=== PATIENT | female | born 1980 | race American Indian/Alaskan Native ===

== ENCOUNTER 2017-09-03 14:08 | Emergency (ER) | payer MEDICARE ==
[2017-09-03 15:25] LABS: Urine Drugs of Abuse Note Disclamer
[2017-09-03 15:34] LABS: Basophils % (Auto) 0.2 % (0.0-1.8); Hematocrit 36.2 % (30.3-42.9); Hemoglobin 11.8 gm/dl (10.1-14.3); Mean Corpuscular HGB Conc 32 % (30-34); Mean Corpuscular Volume 79 fl (79-97); Platelet Count 303 K/mm3 (140-440); Red Blood Count 4.62 M/mm3 (3.65-5.03); White Blood Count 4.8 K/mm3 (4.5-11.0)
[2017-09-03 15:35] LABS: Mean Corpuscular Hemoglobin 26 pg (28-32)
[2017-09-03 15:46] LABS: Anion Gap 18 mmol/L; BUN/Creatinine Ratio 30; Blood Urea Nitrogen 12 mg/dL (7-17); Calcium 8.8 mg/dL (8.4-10.2); Carbon Dioxide 26 mmol/L (22-30); Chloride 100.8 mmol/L (98-107); Glucose 281 mg/dL (65-100); Potassium 4.3 mmol/L (3.6-5.0); Sodium 140 mmol/L (137-145)
[2017-09-03 15:47] LABS: Bilirubin,Urine NEG (Negative); Blood,Urine NEG (Negative); Ketones,Urine NEG (Negative); Leukocyte Esterase,Urine NEG (Negative); Mucus,Urine 1+ /HPF; Nitrite,Urine NEG (Negative)
--- NOTE | 2017-09-03 22:40 | Emergency Department Report ---
ED General Adult HPI - General Chief complaint: Psych Stated complaint: 1013 Time Seen by Provider: 09/03/17 20:58 Source: patient, police Mode of arrival: Ambulatory Limitations: No Limitations - History of Present Illness Initial comments: Pt is a 36 yo female with a history of bipolar disorder and schizoaffective disorder here for suicidal ideation. Pt states she has a history of diabetes. Pt states she is feeling suicidal after her boyfriend got into an argument with her. Pt denied hearing voices, or any suicidal or homicidal ideation. Severity scale (0 -10): 0 - Related Data Allergies Allergy/AdvReac Type Severity Reaction Status Date / Time aspirin Allergy Unknown Verified 09/03/17 15:04 promethazine [From Phenergan] Allergy Unknown Verified 09/03/17 15:04 ED Review of Systems ROS: Stated complaint: 1013 Other details as noted in HPI Constitutional: no symptoms reported Eyes: as per HPI ENT: as per HPI Respiratory: no symptoms reported Cardiovascular: as per HPI Genitourinary: frequency ED Past Medical Hx - Social History Smoking Status: Current Every Day Smoker ED Physical Exam - General Limitations: No Limitations - Head Head exam: Present: atraumatic, normocephalic - Eye Eye exam: Present: normal appearance - ENT ENT exam: Present: mucous membranes moist - Respiratory Respiratory exam: Present: normal lung sounds bilaterally. Absent: respiratory distress - Cardiovascular Cardiovascular Exam: Present: regular rate, normal rhythm. Absent: systolic murmur, diastolic murmur, rubs, gallop - Extremities Exam Extremities exam: Present: normal inspection - Back Exam Back exam: Present: normal inspection - Skin Skin exam: Present: warm, dry, intact, normal color. Absent: rash ED Course Vital Signs 09/03/17 09/03/17 15:23 15:24 Temperature 98.2 F Pulse Rate 94 H Respiratory 16 16 Rate Blood Pressure 109/79 [Left] O2 Sat by Pulse 100 100 Oximetry - Consultations Consultation #1: 09/03/17 22:50 awaiting psych assessment; pt is also being treated for hyperglycemia ED Medical Decision Making - Lab Data Result diagrams: 09/03/17 15:15 09/03/17 15:15 Critical care attestation.: If time is entered above; I have spent that time in minutes in the direct care of this critically ill patient, excluding procedure time. ED Disposition Clinical Impression: Medical clearance for psychiatric admission Is pt being admited?: No Does the pt Need Aspirin: No Condition: Stable Referrals: PRIMARY CARE, [Primary Care Provider] - 3-5 Days
[2017-09-04 14:41] VITALS: BP 116/54
--- NOTE | 2017-09-04 15:12 | Consultation ---
History of Present Illness - Reason for Consult Consult date: 09/04/17 Reason for consult: Mental Health Evaluation Requesting physician: RADHA SARKAR - Chief Complaint Chief complaint: "I hate feeling this way" - History of Present Psychiatric Illness 36 y.o. AA female presenting to [facility] for SI's. Today patient is calm and cooperative during the assessment. She stated that she go into an argument with her boyfriend and starting hearing voices telling her she isn't a nice person. She stated that the voices became overwhelming, so she want to "." She stated that she was discharged from [facility] a week ago and had not taken her medications. She could not elaborate more about the argument she had with her boyfriend. She stated struggling with depression and hearing voices for several years. She stated that she has attempted suicide in the past by overdosing on pills. She endorse SI's without a plan. She denies HI's and VH's. She denies recreational drug use and alcohol consumption (etoh). Medications and Allergies Allergies Allergy/AdvReac Type Severity Reaction Status Date / Time aspirin Allergy Unknown Verified 09/03/17 15:04 promethazine [From Phenergan] Allergy Unknown Verified 09/03/17 15:04 Past psychiatric history - Past Medical History Past Medical History: diabetes Past Surgical History: No surgical history - past Psychiatric treatment and history Psych: Bipolar, Depression, Schizophrenia psychiatric treatment history: Multiple inpatient psy settings. Denies a fam psy hx. - Social History Social history: other (homeless) Mental Status Exam - Vital signs Last Vital Signs Temp 98.4 F 09/04/17 13:00 Pulse 84 09/04/17 13:00 Resp 18 09/04/17 13:00 BP 116/54 09/04/17 13:00 Pulse Ox 99 09/04/17 13:00 - Exam Narrative exam: MSE: Appearance: calm, cooperative Behavior: regular eye contact Speech: regular rate and tone Mood: "not well" withdrawn Affect: congruent to mood Thought Process: circumstantial Thought Content: denies HI's and VH's Motor Activity: ambulatory Cognition: A/O x3 Insight: variable Judgment: variable Results Result Diagrams: 09/03/17 15:15 09/03/17 15:15 Abnormal lab results 11/09/03/17 09/03/17 Range/Units 15:15 15:15 15:24 MCH 26 L (28-32) pg RDW 19.0 H (13.2-15.2) % Lymph # 1.1 L (1.2-5.4) K/mm3 Seg Neutrophils % 71.1 H (40.0-70.0) % Creatinine 0.4 L (0.7-1.2) mg/dL Glucose 281 H (65-100) mg/dL POC Glucose (70-105) U Epithel Cells (Auto) 54.0 H (0-13.0) /HPF 09/04/17 09/04/17 Range/Units 00:18 00:58 MCH (28-32) pg RDW (13.2-15.2) % Lymph # (1.2-5.4) K/mm3 Seg Neutrophils % (40.0-70.0) % Creatinine (0.7-1.2) mg/dL Glucose (65-100) mg/dL POC Glucose 230 H 223 H (70-105) U Epithel Cells (Auto) (0-13.0) /HPF All other labs normal. Assessment and Plan Assessment and plan: Impression: Schizoaffective DO. Today patient is calm and cooperative during the assessment. Patient endorses SI's without a plan. DDx: R/O Bipolar DO, R/O MDD, R/O Schizophrenia Recommendation/Plan: Continue 1013 with placement to [facility] today.
== END 2017-09-04 14:58 ==
LOC: ED 14:08 → EEVIPCON 14:08 → ED 09-04 14:58
DX: Z00.8 Encounter for other general examination (principal); F17.200 Nicotine dependence, unspecified, uncomplicated; Z88.8 Allergy status to other drugs, medicaments and biological substances
CPT/HCPCS: 36415; 80048; 80307; 81001; 81025; 82962; 85025; 96372; 99285; G0480; 80320; J1815

== ENCOUNTER 2017-12-30 01:31 | Emergency (ER) | payer MEDICARE ==
[2017-12-30 02:31] LABS: Basophils % (Auto) 0.3 % (0.0-1.8); Hematocrit 34.9 % (30.3-42.9); Hemoglobin 11.2 gm/dl (10.1-14.3); Lymphocytes # (Auto) 1.4 K/mm3 (1.2-5.4); Lymphocytes % (Auto) 28.6 % (13.4-35.0); Mean Corpuscular HGB Conc 32 % (30-34); Mean Corpuscular Volume 80 fl (79-97); Monocytes # (Auto) 0.3 K/mm3 (0.0-0.8); Monocytes % (Auto) 6.8 % (0.0-7.3); Platelet Count 303 K/mm3 (140-440); Red Blood Count 4.39 M/mm3 (3.65-5.03)
[2017-12-30 02:36] LABS: BUN/Creatinine Ratio 19; Blood Urea Nitrogen 13 mg/dL (7-17); Calcium 8.5 mg/dL (8.4-10.2); Hemolysis Index 18
--- NOTE | 2017-12-30 02:36 | XRay Report ---
FINAL REPORT PROCEDURE: XR CHEST ROUTINE 2V TECHNIQUE: PA and lateral chest radiographs were obtained. CPT 20633 HISTORY: shortness of breath COMPARISON: No prior studies are available for comparison. FINDINGS: Heart: Normal. Mediastinum/Vessels: Normal. Lungs/Pleural space: Normal. Bony thorax: No acute osseous abnormality. Other: IMPRESSION: Normal examination.
[2017-12-30 02:41] LABS: Mean Corpuscular Hemoglobin 25 pg (28-32)
[2017-12-30] MEDS ORDERED: NACL 0.9% 1000 ML 1,000 ML IV ONE ×2 (03:57→06:16)
[2017-12-30] MEDS ORDERED: HumuLIN R IV ONE (06:16)
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
[2017-12-30 06:17] LABS: Bacteria,Urine 2+ /HPF (Negative); Bilirubin,Urine NEG (Negative); Blood,Urine SM (Negative); Color,Urine Yellow (Yellow); Mucus,Urine FEW /HPF; Protein,Urine <15 mg/dL mg/dL (Negative)
[2017-12-30] MEDS ORDERED: HumuLIN R ONE (06:17)
[2017-12-30 10:36] VITALS: BP 123/81
== END 2017-12-30 10:36 | disposition home or self-care (01) ==
LOC: ED 01:31
DX: E11.65 Type 2 diabetes mellitus with hyperglycemia (principal); N39.0 Urinary tract infection, site not specified; F17.200 Nicotine dependence, unspecified, uncomplicated; Z88.6 Allergy status to analgesic agent; Z88.8 Allergy status to other drugs, medicaments and biological substances
CPT/HCPCS: 36415; 71046; 80048; 81001; 82805; 82962; 85025; 93005; 93010; 96361; 96374; 99285; J7030; J1815

== ENCOUNTER 2018-01-05 17:47 | Emergency (ER) | payer MEDICARE ==
[2018-01-05 21:44] LABS: Basophils % (Auto) 0.3 % (0.0-1.8); Hematocrit 35.4 % (30.3-42.9); Lymphocytes # (Auto) 1.5 K/mm3 (1.2-5.4); Lymphocytes % (Auto) 26.7 % (13.4-35.0); Mean Corpuscular HGB Conc 31 % (30-34); Mean Corpuscular Volume 79 fl (79-97); Monocytes # (Auto) 0.4 K/mm3 (0.0-0.8); Monocytes % (Auto) 6.3 % (0.0-7.3); Platelet Count 342 K/mm3 (140-440); Red Blood Count 4.47 M/mm3 (3.65-5.03); Red Cell Distribution Width 17.3 % (13.2-15.2)
[2018-01-05 21:48] LABS: Mean Corpuscular Hemoglobin 25 pg (28-32)
[2018-01-05 21:56] LABS: BUN/Creatinine Ratio 23; Blood Urea Nitrogen 9 mg/dL (7-17); Calcium 8.9 mg/dL (8.4-10.2); Hemolysis Index 0
[2018-01-05 23:09] LABS: Bacteria,Urine 4+ /HPF (Negative); Bilirubin,Urine NEG (Negative); Blood,Urine LG (Negative); Color,Urine Red (Yellow); Mucus,Urine 1+ /HPF
[2018-01-06] MEDS ORDERED: HumuLIN R IV ONE (10:42)
[2018-01-06] MEDS ORDERED: NACL 0.9% 1000 ML 1,000 ML IV ONE (10:42)
--- NOTE | 2018-01-06 11:35 | Emergency Department Report ---
ED General Adult HPI - General Chief complaint: Hyperglycemia Stated complaint: HIGH BLOOD SUGAR/YEAST INFECTION Time Seen by Provider: 01/06/18 10:40 Source: patient Mode of arrival: Ambulatory Limitations: No Limitations - History of Present Illness Initial comments: 37-year-old female past medical history diabetes (takes insulin and metformin), schizophrenia, bipolar disorder, and Marfan syndrome presents to Hospital complaining of bad groin related yeast infection. She has been noncompliant with insulin is running 400-500's at home. She was here last week for the same thing. Patient just got her insulin filled yesterday and has not yet started taking her medication because she needs a prescription for syringes, needles, and a testing machine. Patient complains of continued rash to groin and vaginal area which she thinks is yeast. This rash was also present on her previous visits and has worsened. Patient states she has been using diaper rash cream and Vaseline without improvement. No complaints of fever. Pain to vaginal/inguinal area rated as moderate, constant, worse or palpation. Patient was placed on antibiotics last week for diagnosis of UTI Severity scale (0 -10): 10 - Related Data Previous Rx's Medication Instructions Recorded Last Taken Type Insulin Glargine,Hum.rec.anlog 30 units SQ QHS #5 vial 12/30/17 Unknown Rx [Lantus] Insulin Glargine,Hum.rec.anlog 30 units SQ QHS #5 vial 12/30/17 Unknown Rx [Lantus] Insulin Regular, Human Inj 10 unit SQ AC #3 12/30/17 Unknown Rx [Novolin R Inj] Levofloxacin [Levaquin TAB] 500 mg PO QDAY #7 tablet 12/30/17 Unknown Rx metFORMIN [Glucophage] 500 mg PO BID #60 tablet 12/30/17 Unknown Rx Blood Sugar Diagnostic, Drum 1 each MC TID 30 Days strip 01/06/18 Unknown Rx [Accu-Chek Compact] Syringe and Needle,Insulin,1Ml 1 each MC TID 30 Days disp.syrin 01/06/18 Unknown Rx [Insulin Syringe/Needle 1 ML] Terbinafine HCl [Lamisil At] 1 applicatio TP QDAY 7 Days 01/06/18 Unknown Rx cream..g. Allergies Allergy/AdvReac Type Severity Reaction Status Date / Time aspirin Allergy Unknown Verified 11/15/17 15:04 promethazine [From Phenergan] Allergy Unknown Verified 09/03/17 15:04 ED Review of Systems ROS: Stated complaint: HIGH BLOOD SUGAR/YEAST INFECTION Other details as noted in HPI Comment: All other systems reviewed and negative Other: Constitutional: No fevers chills or weight loss Eyes: No eye pain visual changes ENT: No ear pain or throat pain Neck: Denies pain Respiratory: Denies cough wheezing shortness of breath Cardiovascular: Denies chest pain, palpitations, syncope GI: Denies abdominal pain, nausea, vomiting, diarrhea : Denies dysuria Musculoskeletal: Denies back pain Skin: As per HPI Neurologic: Denies headache, numbness, weakness Psychiatric: Denies suicidal ideation, hallucinations y ED Past Medical Hx - Past Medical History Previous Medical History?: Yes Hx Diabetes: Yes Hx Psychiatric Treatment: Yes (Schizophrenia, Bipolar) Additional medical history: Marfan syndrome - Social History Smoking Status: Current Every Day Smoker - Medications Home Medications: Home Medications Medication Instructions Recorded Confirmed Last Taken Type Insulin Glargine,Hum.rec.anlog 30 units SQ QHS #5 vial 12/30/17 Unknown Rx [Lantus] Insulin Glargine,Hum.rec.anlog 30 units SQ QHS #5 vial 12/30/17 Unknown Rx [Lantus] Insulin Regular, Human Inj 10 unit SQ AC #3 12/30/17 Unknown Rx [Novolin R Inj] Levofloxacin [Levaquin TAB] 500 mg PO QDAY #7 tablet 12/30/17 Unknown Rx metFORMIN [Glucophage] 500 mg PO BID #60 tablet 12/30/17 Unknown Rx Blood Sugar Diagnostic, Drum 1 each MC TID 30 Days strip 01/06/18 Unknown Rx [Accu-Chek Compact] Syringe and Needle,Insulin,1Ml 1 each MC TID 30 Days disp.syrin 01/06/18 Unknown Rx [Insulin Syringe/Needle 1 ML] Terbinafine HCl [Lamisil At] 1 applicatio TP QDAY 7 Days 01/06/18 Unknown Rx cream..g. ED Physical Exam - General Limitations: No Limitations - Other Other exam information: General: No limitations, patient is alert in no acute distress Head exam: Atraumatic, normocephalic Eyes exam: Normal appearance ENT: Moist mucous membrane, normal oropharynx Neck exam: Normal inspection, full range of motion Respiratory exam: Clear to auscultation bilateral, no wheezes, rales, crackles Cardiovascular: Normal rate and rhythm, normal heart sounds Abdomen: Soft, nondistended, and nontender, with normal bowel sounds, no rebound, or guarding Extremity: Full range of motion normal inspection no deformity Back: Normal Inspection, full range of motion, no tenderness Neurologic: Alert, oriented x3, cranial nerves intact, no motor or sensory deficit Psychiatric: normal affect, normal mood Skin: Significant tinea cruris infection with malodorous, moist, erythematous rash with white plaques infection involves the vulva and intertriginous areas ED Course Vital Signs 01/05/18 01/06/18 01/06/18 21:15 03:19 05:48 Temperature 98.2 F 98.2 F Pulse Rate 83 76 77 Respiratory 20 18 18 Rate Blood Pressure 125/77 135/84 146/86 Blood Pressure [Right] O2 Sat by Pulse 100 100 100 Oximetry 01/06/18 01/06/18 08:13 13:34 Temperature 98.7 F 98.0 F Pulse Rate 77 82 Respiratory 20 18 Rate Blood Pressure 137/91 Blood Pressure 132/82 [Right] O2 Sat by Pulse 99 98 Oximetry ED Medical Decision Making - Lab Data Result diagrams: 01/05/18 21:34 01/05/18 21:34 Lab Results 01/05/18 01/05/18 01/05/18 Range/Units 21:29 21:34 21:34 WBC 5.5 (4.5-11.0) K/mm3 RBC 4.47 (3.65-5.03) M/mm3 Hgb 11.0 (10.1-14.3) gm/dl Hct 35.4 (30.3-42.9) % MCV 79 (79-97) fl MCH 25 L (28-32) pg MCHC 31 (30-34) % RDW 17.3 H (13.2-15.2) % Plt Count 342 (140-440) K/mm3 Lymph % (Auto) 26.7 (13.4-35.0) % [place] % (Auto) 6.3 (0.0-7.3) % Eos % (Auto) 0.0 (0.0-4.3) % Baso % (Auto) 0.3 (0.0-1.8) % Lymph # 1.5 (1.2-5.4) K/mm3 [place] # 0.4 (0.0-0.8) K/mm3 Eos # 0.0 (0.0-0.4) K/mm3 Baso # 0.0 (0.0-0.1) K/mm3 Seg Neutrophils % 66.7 (40.0-70.0) % Seg Neutrophils # 3.7 (1.8-7.7) K/mm3 VBG pH (7.320-7.420) Sodium 137 (137-145) mmol/L Potassium 4.2 (3.6-5.0) mmol/L Chloride 100.7 (98-107) mmol/L Carbon Dioxide 22 (22-30) mmol/L Anion Gap 19 mmol/L BUN 9 (7-17) mg/dL Creatinine 0.4 L (0.7-1.2) mg/dL Estimated GFR > 60 ml/min BUN/Creatinine Ratio 23 % Glucose 266 H (65-100) mg/dL POC Glucose 190 H (70-105) Calcium 8.9 (8.4-10.2) mg/dL Total Bilirubin (0.1-1.2) mg/dL Direct Bilirubin (0-0.2) mg/dL Indirect Bilirubin mg/dL AST (5-40) units/L ALT (7-56) units/L Alkaline Phosphatase (35-129) units/L Total Protein (6.3-8.2) g/dL Albumin (3.9-5) g/dL Albumin/Globulin Ratio % HCG, Qual (Negative) Urine Color (Yellow) Urine Turbidity (Clear) Urine pH (5.0-7.0) Ur Specific [place] (1.003-1.030) Urine Protein (Negative) mg/dL Urine Glucose (UA) (Negative) mg/dL Urine Ketones (Negative) mg/dL Urine Blood (Negative) Urine Nitrite (Negative) Urine Bilirubin (Negative) Urine Urobilinogen (<2.0) mg/dL Ur Leukocyte Esterase (Negative) Urine WBC (Auto) (0.0-6.0) /HPF Urine RBC (Auto) (0.0-6.0) /HPF U Epithel Cells (Auto) (0-13.0) /HPF Urine Bacteria (Auto) (Negative) /HPF Urine Mucus /HPF 01/05/18 01/05/18 01/05/18 Range/Units 21:34 21:34 Unknown WBC (4.5-11.0) K/mm3 RBC (3.65-5.03) M/mm3 Hgb (10.1-14.3) gm/dl Hct (30.3-42.9) % MCV (79-97) fl MCH (28-32) pg MCHC (30-34) % RDW (13.2-15.2) % Plt Count (140-440) K/mm3 Lymph % (Auto) (13.4-35.0) % [place] % (Auto) (0.0-7.3) % Eos % (Auto) (0.0-4.3) % Baso % (Auto) (0.0-1.8) % Lymph # (1.2-5.4) K/mm3 [place] # (0.0-0.8) K/mm3 Eos # (0.0-0.4) K/mm3 Baso # (0.0-0.1) K/mm3 Seg Neutrophils % (40.0-70.0) % Seg Neutrophils # (1.8-7.7) K/mm3 VBG pH 7.393 (7.320-7.420) Sodium (137-145) mmol/L Potassium (3.6-5.0) mmol/L Chloride (98-107) mmol/L Carbon Dioxide (22-30) mmol/L Anion Gap mmol/L BUN (7-17) mg/dL Creatinine (0.7-1.2) mg/dL Estimated GFR ml/min BUN/Creatinine Ratio % Glucose (65-100) mg/dL POC Glucose (70-105) Calcium (8.4-10.2) mg/dL Total Bilirubin (0.1-1.2) mg/dL Direct Bilirubin (0-0.2) mg/dL Indirect Bilirubin mg/dL AST (5-40) units/L ALT (7-56) units/L Alkaline Phosphatase (35-129) units/L Total Protein (6.3-8.2) g/dL Albumin (3.9-5) g/dL Albumin/Globulin Ratio % HCG, Qual Negative (Negative) Urine Color Red (Yellow) Urine Turbidity Clear (Clear) Urine pH 5.0 (5.0-7.0) Ur Specific [place] 1.025 (1.003-1.030) Urine Protein 100 mg/dl (Negative) mg/dL Urine Glucose (UA) >=500 (Negative) mg/dL Urine Ketones 80 (Negative) mg/dL Urine Blood Lg (Negative) Urine Nitrite Neg (Negative) Urine Bilirubin Neg (Negative) Urine Urobilinogen 2.0 (<2.0) mg/dL Ur Leukocyte Esterase Lg (Negative) Urine WBC (Auto) 37.0 H (0.0-6.0) /HPF Urine RBC (Auto) 42.0 (0.0-6.0) /HPF U Epithel Cells (Auto) 15.0 H (0-13.0) /HPF Urine Bacteria (Auto) 4+ (Negative) /HPF Urine Mucus 1+ /HPF 01/06/18 01/06/18 01/06/18 Range/Units 05:55 10:32 12:11 WBC (4.5-11.0) K/mm3 RBC (3.65-5.03) M/mm3 Hgb (10.1-14.3) gm/dl Hct (30.3-42.9) % MCV (79-97) fl MCH (28-32) pg MCHC (30-34) % RDW (13.2-15.2) % Plt Count (140-440) K/mm3 Lymph % (Auto) (13.4-35.0) % [place] % (Auto) (0.0-7.3) % Eos % (Auto) (0.0-4.3) % Baso % (Auto) (0.0-1.8) % Lymph # (1.2-5.4) K/mm3 [place] # (0.0-0.8) K/mm3 Eos # (0.0-0.4) K/mm3 Baso # (0.0-0.1) K/mm3 Seg Neutrophils % (40.0-70.0) % Seg Neutrophils # (1.8-7.7) K/mm3 VBG pH (7.320-7.420) Sodium (137-145) mmol/L Potassium (3.6-5.0) mmol/L Chloride (98-107) mmol/L Carbon Dioxide (22-30) mmol/L Anion Gap mmol/L BUN (7-17) mg/dL Creatinine (0.7-1.2) mg/dL Estimated GFR ml/min BUN/Creatinine Ratio % Glucose (65-100) mg/dL POC Glucose 337 H 308 H (70-105) Calcium (8.4-10.2) mg/dL Total Bilirubin 0.40 (0.1-1.2) mg/dL Direct Bilirubin < 0.2 (0-0.2) mg/dL Indirect Bilirubin 0.2 mg/dL AST 20 (5-40) units/L ALT 19 (7-56) units/L Alkaline Phosphatase 106 (35-129) units/L Total Protein 6.4 (6.3-8.2) g/dL Albumin 3.4 L (3.9-5) g/dL Albumin/Globulin Ratio 1.1 % HCG, Qual (Negative) Urine Color (Yellow) Urine Turbidity (Clear) Urine pH (5.0-7.0) Ur Specific [place] (1.003-1.030) Urine Protein (Negative) mg/dL Urine Glucose (UA) (Negative) mg/dL Urine Ketones (Negative) mg/dL Urine Blood (Negative) Urine Nitrite (Negative) Urine Bilirubin (Negative) Urine Urobilinogen (<2.0) mg/dL Ur Leukocyte Esterase (Negative) Urine WBC (Auto) (0.0-6.0) /HPF Urine RBC (Auto) (0.0-6.0) /HPF U Epithel Cells (Auto) (0-13.0) /HPF Urine Bacteria (Auto) (Negative) /HPF Urine Mucus /HPF 01/06/18 Range/Units 12:22 WBC (4.5-11.0) K/mm3 RBC (3.65-5.03) M/mm3 Hgb (10.1-14.3) gm/dl Hct (30.3-42.9) % MCV (79-97) fl MCH (28-32) pg MCHC (30-34) % RDW (13.2-15.2) % Plt Count (140-440) K/mm3 Lymph % (Auto) (13.4-35.0) % [place] % (Auto) (0.0-7.3) % Eos % (Auto) (0.0-4.3) % Baso % (Auto) (0.0-1.8) % Lymph # (1.2-5.4) K/mm3 [place] # (0.0-0.8) K/mm3 Eos # (0.0-0.4) K/mm3 Baso # (0.0-0.1) K/mm3 Seg Neutrophils % (40.0-70.0) % Seg Neutrophils # (1.8-7.7) K/mm3 VBG pH (7.320-7.420) Sodium (137-145) mmol/L Potassium (3.6-5.0) mmol/L Chloride (98-107) mmol/L Carbon Dioxide (22-30) mmol/L Anion Gap mmol/L BUN (7-17) mg/dL Creatinine (0.7-1.2) mg/dL Estimated GFR ml/min BUN/Creatinine Ratio % Glucose (65-100) mg/dL POC Glucose 250 H (70-105) Calcium (8.4-10.2) mg/dL Total Bilirubin (0.1-1.2) mg/dL Direct Bilirubin (0-0.2) mg/dL Indirect Bilirubin mg/dL AST (5-40) units/L ALT (7-56) units/L Alkaline Phosphatase (35-129) units/L Total Protein (6.3-8.2) g/dL Albumin (3.9-5) g/dL Albumin/Globulin Ratio % HCG, Qual (Negative) Urine Color (Yellow) Urine Turbidity (Clear) Urine pH (5.0-7.0) Ur Specific [place] (1.003-1.030) Urine Protein (Negative) mg/dL Urine Glucose (UA) (Negative) mg/dL Urine Ketones (Negative) mg/dL Urine Blood (Negative) Urine Nitrite (Negative) Urine Bilirubin (Negative) Urine Urobilinogen (<2.0) mg/dL Ur Leukocyte Esterase (Negative) Urine WBC (Auto) (0.0-6.0) /HPF Urine RBC (Auto) (0.0-6.0) /HPF U Epithel Cells (Auto) (0-13.0) /HPF Urine Bacteria (Auto) (Negative) /HPF Urine Mucus /HPF - Medical Decision Making No signs of DKA with normal pH and bicarbonate labs. Ketosis could be related to poor food intake. Patient has a significant tinea cruris infection likely related to hyperglycemia and medication noncompliance. Patient educated on the importance of glucose control so that infection may get better. Received one dose of Diflucan in the ED (LFTs normal) and will he continued on a topical antifungal cream. Instructed to return if symptoms don't improve and follow-up recommended. UA has white cells in high epithelials therefore likely contaminate. Patient does not have symptoms of uti - Differential Diagnosis DKA, hyperglycemia, yeast infection, bacterial infection Critical Care Time: No Critical care attestation.: If time is entered above; I have spent that time in minutes in the direct care of this critically ill patient, excluding procedure time. ED Disposition Clinical Impression: Hyperglycemia, Noncompliance with medication regimen, Tinea cruris Disposition: TO HOME OR SELFCARE Is pt being admited?: No Does the pt Need Aspirin: No Condition: Stable Instructions: Jock Itch (ED), Diabetes Mellitus Type 2 in Adults (ED) Additional Instructions: Take the medication as prescribed. Return if symptoms do not improve. Follow- up with the clinic or doctor provided. Prescriptions: Blood Sugar Diagnostic, Drum [Accu-Chek Compact] 1 each MC TID 30 Days strip Syringe and Needle,Insulin,1Ml [Insulin Syringe/Needle 1 ML] 1 each MC TID 30 Days disp.syrin Terbinafine HCl [Lamisil At] 1 applicatio TP QDAY 7 Days cream..g. Referrals: PRIMARY CAREMD [Primary Care Provider] - 3-5 Days [facility] [Provider Group] - 3-5 Days JOSE KAISER JR, MD [Staff Physician] - 3-5 Days Time of Disposition: 14:05
[2018-01-06] MEDS ORDERED: DIFLUCAN PO ONE (12:00)
[2018-01-06 13:04] LABS: Alanine Aminotransferase 19 units/L (7-56); Albumin 3.4 g/dL (3.9-5)
[2018-01-06 13:05] LABS: Bilirubin,Direct < 0.2 mg/dL (0-0.2)
[2018-01-06 13:35] VITALS: BP 132/82
== END 2018-01-06 14:34 | disposition home or self-care (01) ==
LOC: ED 17:47
DX: E11.65 Type 2 diabetes mellitus with hyperglycemia (principal); B35.6 Tinea cruris; F17.200 Nicotine dependence, unspecified, uncomplicated; Z79.4 Long term (current) use of insulin; Z88.6 Allergy status to analgesic agent; Z88.8 Allergy status to other drugs, medicaments and biological substances
CPT/HCPCS: 36415; 80048; 80074; 81001; 82805; 82962; 84703; 85025; 96361; 96374; 99284; J7030; J1815

== ENCOUNTER 2018-04-17 12:59 | Emergency (ER) | payer MEDICARE ==
--- NOTE | 2018-04-17 14:01 | Emergency Department Report ---
Blank Doc - Documentation Documentation: Patient is a 37-year-old female past medical history diabetes who is presenting with an abscess on the right lower extremity. Patient was seen in another facility was given a prescription for antibiotics however she states this was lost. Patient has subjective fevers and chills this morning. Patient denies any nausea vomiting abdominal pain at this time. Patient be sent to a treatment room for incision and drainage.
--- NOTE | 2018-04-17 14:13 | Emergency Department Report ---
Abscess Boil HPI - HPI Chief Complaint: Skin/Abscess/Foreign Body Stated Complaint: SPIDER BITE Time Seen by Provider: 04/17/18 13:56 Duration: 4 Days Location: Lower Extremity (left leg) Severity: Moderate History: Yes Fever (subjective), Yes Pain (8/10 sore), Yes Insect Bite (patient reports spider bite), No Purulent Drainage, No Numbness, No Foreign Body, No Previous History HPI: Patient is a 37-year-old female past medical history diabetes who is presenting with an abscess on the right lower extremity. Patient was seen in another facility was given a prescription for antibiotics however she states this was lost. Patient has subjective fevers and chills this morning. Patient denies any nausea vomiting abdominal pain at this time. Denies any numbness or tingling to extremities. Pain is 8/10 left leg and sore localized to the affected area. Patient says that area has gotten better and it was read now it' s dark. Worse with movement and palpation better resting. No medication taken. Immunizations up-to-date to include tetanus. She denies any respiratory symptoms such as shortness of breath, difficulty swallowing, stridor or wheezing, coughing or swelling neck or face. Home Medications: Previous Rx's Medication Instructions Recorded Last Taken Type Insulin Glargine,Hum.rec.anlog 30 units SQ QHS #5 vial 12/30/17 Unknown Rx [Lantus] Insulin Glargine,Hum.rec.anlog 30 units SQ QHS #5 vial 12/30/17 Unknown Rx [Lantus] Insulin Regular, Human Inj 10 unit SQ AC #3 12/30/17 Unknown Rx [Novolin R Inj] Levofloxacin [Levaquin TAB] 500 mg PO QDAY #7 tablet 12/30/17 Unknown Rx metFORMIN [Glucophage] 500 mg PO BID #60 tablet 12/30/17 Unknown Rx Blood Sugar Diagnostic, Drum 1 each MC TID 30 Days strip 01/06/18 Unknown Rx [Accu-Chek Compact] Blood-Glucose Meter [Accu-Chek 1 each MC DAILY #1 unit 01/06/18 Unknown Rx Guide Monitor System] Syringe and Needle,Insulin,1Ml 1 each MC TID 30 Days disp.syrin 01/06/18 Unknown Rx [Insulin Syringe/Needle 1 ML] Terbinafine HCl [Lamisil At] 1 applicatio TP QDAY 7 Days 01/06/18 Unknown Rx cream..g. Neomycin/Bacitracin/Polymyxinb 14.2 gm TP BID 7 Days #1 oint...g. 04/17/18 Unknown Rx [Neosporin Antibiotic Ointment] Sulfamethoxazole/Trimethoprim 1 each PO BID 10 Days #20 tablet 04/17/18 Unknown Rx [Bactrim DS TAB] Allergies/Adverse Reactions: Allergies Allergy/AdvReac Type Severity Reaction Status Date / Time aspirin Allergy Unknown Verified 09/03/17 15:04 promethazine [From Phenergan] Allergy Unknown Verified 09/03/17 15:04 ED Review of Systems ROS: Stated complaint: SPIDER BITE Other details as noted in HPI Constitutional: denies: chills, fever Eyes: vision change ENT: denies: ear pain, throat pain Respiratory: denies: cough, shortness of breath, SOB with exertion, SOB at rest , stridor, wheezing Cardiovascular: denies: chest pain, palpitations, edema, syncope Gastrointestinal: denies: abdominal pain, nausea, vomiting, diarrhea, constipation Genitourinary: denies: urgency, dysuria, frequency, hematuria, discharge Musculoskeletal: arthralgia. denies: back pain, joint swelling Skin: rash (insect bite with swelling to left leg). denies: lesions Neurological: denies: headache, weakness, numbness, paresthesias ED Past Medical Hx - Past Medical History Previous Medical History?: Yes Hx Diabetes: Yes Hx Psychiatric Treatment: Yes (Schizophrenia, Bipolar) Additional medical history: Marfan syndrome - Surgical History Past Surgical History?: No - Family History Family history: hypertension - Social History Smoking Status: Current Every Day Smoker Substance Use Type: Prescribed - Medications Home Medications: Home Medications Medication Instructions Recorded Confirmed Last Taken Type Insulin Glargine,Hum.rec.anlog 30 units SQ QHS #5 vial 12/30/17 Unknown Rx [Lantus] Insulin Glargine,Hum.rec.anlog 30 units SQ QHS #5 vial 12/30/17 Unknown Rx [Lantus] Insulin Regular, Human Inj 10 unit SQ AC #3 12/30/17 Unknown Rx [Novolin R Inj] Levofloxacin [Levaquin TAB] 500 mg PO QDAY #7 tablet 12/30/17 Unknown Rx metFORMIN [Glucophage] 500 mg PO BID #60 tablet 12/30/17 Unknown Rx Blood Sugar Diagnostic, Drum 1 each MC TID 30 Days strip 01/06/18 Unknown Rx [Accu-Chek Compact] Blood-Glucose Meter [Accu-Chek 1 each MC DAILY #1 unit 01/06/18 Unknown Rx Guide Monitor System] Syringe and Needle,Insulin,1Ml 1 each MC TID 30 Days disp.syrin 01/06/18 Unknown Rx [Insulin Syringe/Needle 1 ML] Terbinafine HCl [Lamisil At] 1 applicatio TP QDAY 7 Days 01/06/18 Unknown Rx cream..g. Neomycin/Bacitracin/Polymyxinb 14.2 gm TP BID 7 Days #1 oint...g. 04/17/18 Unknown Rx [Neosporin Antibiotic Ointment] Sulfamethoxazole/Trimethoprim 1 each PO BID 10 Days #20 tablet 04/17/18 Unknown Rx [Bactrim DS TAB] ED Abscess Boil Physical Exam - Exam General: Vital signs noted. No distress. Alert and acting appropriately. This is a 37-year-old female well-nourished well-developed in no acute distress and nontoxic in appearance. Front/Back of Body, Lg (Color): 1 - Patient with 2 cm, indurated area with minimal fluctuant to left other mid leg. Tender to palpate with small opening to Center. No erythema. Tetanus vaccine is up-to-date. Size: 2 cm Exam: Yes Tenderness (localized to left, lateral mid leg), Yes Fluctuance ( minimal but mostly induration), Yes Normal Neurologic Exam (alert and oriented 3, normal gait GCS of 15), Yes Normal Circulation (no clubbing, cyanosis or edema. +2 pulses to all extremities and no neurovascular compromise), No Surrounding Cellulites/Erythema, No Lymphangitis, No Crepitation, No Heart Murmur (S1, S2. Mild tachycardia at 105) Exam: Lungs: Clear to auscultation bilaterally, no rhonchi wheezes or rales. Neck: Supple, full range of motion, no tracheal deviation. No stridor. No lymphadenopathy. Mouth: Oral mucosa moist, no pharyngeal erythema, uvula is midline and oral airways patent with normal tongue. Psych: Normal mood and behavior I & D Note - I & D Note I & D Note: Procedure for incision and drainage. Simple abscess to left lateral outer mid leg with minimal fluctuance at 2 cm. Under sterile precautions, area cleansed with iodine, followed by normal saline. 1% lidocaine 0.5 mL injected at the site. #18-gauge needle used to make small opening to Center. Expressed moderate amount of pus from site and now no indurated area. Area cleansed with iodine and normal saline, sterile nonadhesive dressing placed the site. Patient tolerated procedure well. ED Course Vital Signs 04/17/18 13:05 Temperature 97.4 F L Pulse Rate 105 H Respiratory 20 Rate Blood Pressure 123/74 O2 Sat by Pulse 98 Oximetry - Reevaluation(s) Reevaluation #1: 04/17/18 14:13 Patient given insulin 5 units regular for blood sugar of 34. She usually takes insulin 3 times a day but she says she forgot it in her friend's car. See procedure note for incision and drainage Reevaluation #2: 04/17/18 16:35 Patient is stable and postprocedure incision and drainage of simple abscess she is stable and her heart rate is normalized. Critical care attestation.: If time is entered above; I have spent that time in minutes in the direct care of this critically ill patient, excluding procedure time. ED Medical Decision Making - Lab Data Blood glucose at 334 and she was given 5 units of insulin. - Medical Decision Making ED course: 37-year-old patient who presented emergency room with complaint of spider bites her left leg. She says that this happened a few days ago and it was red but now it start to look like there is an abscess there. Tetanus vaccines up-to- date. Her blood sugar is greater than 300 and she got 5 units of insulin emergency room. Patient is here to be evaluated for insect bite. She says she has diabetes and she is afraid that she is to get an infection. Patient was seen and examined by myself and found to have simple abscess to left lateral leg. See procedure note for incision and drainage. Her extremity exam was normal. Patient also had elevated blood sugar at 334 because she says she takes insulin 3 times a day and her friend has her insulin so she received 5 units of regular insulin subcutaneous. Patient stable on a discussed with her diagnosis and treatment plan and she voiced understanding. A/P 1: Simple abscess left leg-incision and drainage procedure done. See procedure note for detail. Tetanus vaccines up-to-date. Patient was sent home on Bactrim DS 2: Inset bite to left leg-patient is stable. 3: Hyperglycemia and diabetes type 1-POC blood sugar 334. Patient noncompliant with medication and she did not take her insulin today therefore she was given 5 units of regular insulin and she said she is going home to take her medication. Dictated on high blood glucose on body systems and organs for prolonged period of time, medication, diagnosis, wound care. She voiced understanding Pt discharged home with prescription for Bactrim and Neosporin ointment. Her vital signs are stable and she is febrile. She says she is feeling better. She is not in any pain. I discussed the patient follow up with her PCP in 3 days or if her condition worsens to include fever, chills, increasing redness and swelling to the affected area, weakness and increased drainage to return to the emergency room GABY and she voiced understanding. - Differential Diagnosis nodule, cysts, cellulitis, abscess ED Disposition Clinical Impression: Encounter for incision and drainage procedure, Simple abscess, Hyperglycemia due to type 1 diabetes mellitus Insect bite Qualifiers: Encounter type: initial encounter Qualified Code(s): W57.XXXA - Bitten or stung by nonvenomous insect and other nonvenomous arthropods, initial encounter Disposition: DC-01 TO HOME OR SELFCARE Is pt being admited?: No Does the pt Need Aspirin: No Condition: Stable Instructions: Insect Bite or Sting (ED), Abscess Incision and Drainage (ED), Diabetes Mellitus Type 2 in Adults (ED) Additional Instructions: Please keep affected area clean and dry Antibiotic as prescribed. Take Motrin for pain Increasing fluid intake and practice good hand hygiene *Take insulin as prescribed. Apply warm compresses to affected area 3 times a day If affected area becomes increasingly in size, increased pain, fever or chills, nausea or vomiting, numbness or tingling to extremity, streak in and increased redness please return to the emergency room Prescriptions: Neomycin/Bacitracin/Polymyxinb [Neosporin Antibiotic Ointment] 14.2 gm TP BID 7 Days #1 oint...g. Sulfamethoxazole/Trimethoprim [Bactrim DS TAB] 1 each PO BID 10 Days #20 tablet Referrals: [facility] [Outside] - 04/20/18 PRIMARY CAREMD [Primary Care Provider] - 04/20/18 Forms: Work/School Release Form(ED)
[2018-04-17] MEDS ORDERED: HumuLIN R ONE (14:16)
[2018-04-17] MEDS ORDERED: HumuLIN R SUB-Q ONE (14:30)
[2018-04-17 16:52] VITALS: BP 136/89
== END 2018-04-17 16:52 | disposition home or self-care (01) ==
LOC: ED 12:59
DX: S80.862A Insect bite (nonvenomous), left lower leg, initial encounter (principal); L02.416 Cutaneous abscess of left lower limb; E10.65 Type 1 diabetes mellitus with hyperglycemia; F31.9 Bipolar disorder, unspecified; F20.9 Schizophrenia, unspecified; F17.200 Nicotine dependence, unspecified, uncomplicated; Z79.4 Long term (current) use of insulin; Z88.6 Allergy status to analgesic agent; Z88.8 Allergy status to other drugs, medicaments and biological substances; W57.XXXA Bitten or stung by nonvenomous insect and other nonvenomous arthropods, initial encounter; Y93.89 Activity, other specified; Y92.89 Other specified places as the place of occurrence of the external cause; Y99.8 Other external cause status
CPT/HCPCS: 82962; 96372; J1815

== ENCOUNTER 2019-03-02 13:03 | Emergency (ER) | payer MEDICARE ==
[2019-03-02 14:13] VITALS: BP 114/72
== END 2019-03-02 19:03 | disposition left against medical advice (07) ==
LOC: ED 13:03
DX: R11.10 Vomiting, unspecified (principal); Z53.21 Procedure and treatment not carried out due to patient leaving prior to being seen by health care provider